=== PATIENT | female | born 1995 | race Hispanic/Latino ===

== ENCOUNTER 2025-03-04 18:38 | Emergency (ER) | payer SELFPAY ==
[~2025-03-04] VITALS: Ht 147.3 cm; Wt 57.6 kg
--- NOTE | 2025-03-04 19:25 | NUR ---
PT PLACED INTO FAST TRACK AT THIS TIME
--- NOTE | 2025-03-04 19:33 | NUR ---
BLADDER SCAN PERFORMED: 110ML
[2025-03-04 19:57] LABS: APPEARANCE,URINE CLEAR (CLEAR); GLUCOSE, URINE (UA) NEGATIVE (NEGATIVE); LEUKOCYTE ESTERASE ,URINE NEGATIVE Leu/uL (NEGATIVE); NITRATE,URINE NEGATIVE (NEGATIVE); OCCULT BLOOD,URINE NEGATIVE (NEGATIVE); SQUAMOUS EPITHELIAL CELL,UR RARE /HPF (0-2)
[2025-03-04 19:58] LABS: HCG,QUALITATIVE URINE NEGATIVE (NEGATIVE)
[2025-03-04 20:23] LABS: IMMATURE GRANULOCYTE ABSOLUTE 0.03 K/uL (0-1); NUCLEATED RED BLOOD CELLS 0.0 % (0.0-0.19); PLATELET COUNT (AUTO) 276 K/uL (130-400); RED BLOOD CELL COUNT(AUTO) 3.93 MIL/uL (4.00-5.50); RED CELL DISTRIBUTION WIDTH 20.0 % (11.0-15.5); WHITE BLOOD COUNT (AUTO) 9.5 K/uL (4.8-10.8)
[2025-03-04 20:30] LABS: CREATININE 0.6 mg/dL (0.5-1.0); GLOMERULAR FILTR. RATE CALC 125.0 mL/min (>90); GLUCOSE,RANDOM 104.0 mg/dL (70-105); SODIUM SERUM 142.0 mmol/L (136-145); UREA NITROGEN, BLOOD 15.0 mg/dL (7-18)
--- NOTE | 2025-03-04 23:46 | HMCIMG ---
EXAM: CT Abdomen and Pelvis Without IV contrast CLINICAL HISTORY: Patient presents with urinary retention. TECHNIQUE: Axial computed tomography images of the abdomen and pelvis without intravenous contrast. CONTRAST: No IV contrast. COMPARISON: None provided. FINDINGS: LUNG BASES: The lung bases appear clear. No pleural effusions are seen. LIVER: The liver is enlarged, measuring 17.5 cm in craniocaudal span. GALLBLADDER AND BILE DUCTS: Mildly thickened gallbladder wall. No radioopaque gallstones are seen. No biliary ductal dilatation is evident. PANCREAS: Unremarkable. SPLEEN: Unremarkable. ADRENAL GLANDS: Unremarkable. KIDNEYS, URETERS, AND BLADDER: The kidneys appear within normal limits. No renal or ureteric calculus. No hydronephrosis or hydroureter. The urinary bladder is incompletely distended at the time of examination, limiting evaluation for possible wall thickening. In the appropriate clinical setting, mild cystitis cannot be excluded. STOMACH AND BOWEL: Unremarkable appearance of the stomach and bowel. No evidence of bowel obstruction. No evidence suggesting enteritis or colitis. APPENDIX: No evidence of acute appendicitis on CT examination. PERITONEUM: Minimal free fluid in the cul-de-sac. No free air. LYMPH NODES: No lymphadenopathy is evident. REPRODUCTIVE: The uterus and both ovaries are unremarkable. VASCULATURE: No evidence of abdominal aortic aneurysm. BONES: No aggressive appearing osseous lesion. No acute osseous pathology evident. IMPRESSION: No renal, ureteral, or bladder calculus or hydronephrosis bilaterally. No CT evidence of urinary retention. Mildly thickened gallbladder wall, recommend ultrasound of the gallbladder for further evaluation. Mild hepatomegaly without focal hepatic lesion. Minimal free fluid in the cul-de-sac. /[place]
[2025-03-05] MEDS ORDERED: MACR100 PO (00:16)
--- NOTE | 2025-03-05 00:17 | ERN ---
General Chief Complaint: Pelvic Pain Stated Complaint: PELVIC PAIN Time Seen by MD: 19:58 Time Seen by Midlevel: 19:58 Source: patient History of Present Illness Allergies: Coded Allergies: No Known Drug Allergies (Unverified Allergy, Unknown, 03/04/25) Past Medical History Past Medical History: No Pertinent History Past Surgical History: Female( History) LMP: Feb 16, 2025 Results Laboratory and Microbiology Lab and Micro Result Laboratory Tests Test 03/04/25 19:38 03/04/25 20:16 Urine Color DARK-ORANGE (YELLOW) Urine Appearance CLEAR (CLEAR) Urine pH 6.5 (5.0-8.0) Urine Specific [place] 1.004 (1.001-1.031) Urine Protein NEGATIVE mg/dL (NEGATIVE) Urine Glucose (UA) NEGATIVE mg/dL (NEGATIVE) Urine Ketones NEGATIVE mg/dL (NEGATIVE) Urine Occult Blood NEGATIVE (NEGATIVE) Urine Nitrate NEGATIVE (NEGATIVE) Urine Bilirubin NEGATIVE mg/dL (NEGATIVE) Urine Urobilinogen 0.2 mg/dL (0.2-1.0) Urine Leukocyte Esterase NEGATIVE [place]/uL Urine RBC None /HPF (0-1) Urine WBC None /HPF (0-1) Urine Squamous Epithelial Cells RARE /HPF (0-2) Urine Bacteria None /HPF (None Seen) Urine HCG, Qualitative NEGATIVE (NEGATIVE) White Blood Count 9.5 K/uL (4.8-10.8) Red Blood Count 3.93 MIL/uL (4.00-5.50) L Hemoglobin 8.9 g/dL (12.0-16.0) L Hematocrit 31.2 % (36-48) L Mean Corpuscular Volume 79.4 fL (79-99) Mean Corpuscular Hemoglobin 22.6 pg (27.0-33.0) L Mean Corpuscular Hemoglobin Concent 28.5 g/dL (32.0-36.0) L Red Cell Distribution Width 20.0 % (11.0-15.5) H Platelet Count 276 K/uL (130-400) Mean Platelet Volume 11.0 fL (7.5-10.5) H Immature Granulocyte % (Auto) 0.3 % (0-1) Neutrophils (%) (Auto) 69.4 % (40.0-77.0) Lymphocytes (%) (Auto) 22.3 % (21.0-51.0) Monocytes (%) (Auto) 6.0 % (3.0-13.0) Eosinophils (%) (Auto) 1.6 % (0.0-8.0) Basophils (%) (Auto) 0.4 % (0.0-5.0) Neutrophils # (Auto) 6.6 K/uL (1.8-7.7) Lymphocytes # (Auto) 2.1 K/uL (1.0-4.8) Monocytes # (Auto) 0.6 K/uL (0.1-1.0) Eosinophils # (Auto) 0.15 K/uL (0.00-0.70) Basophils # (Auto) 0.04 K/uL (0.00-0.20) Absolute Immature Granulocyte (auto 0.03 K/uL (0-1) Nucleated Red Blood Cells 0.0 % (0.0-0.19) Red Blood Cell Morphology See comments Sodium Level 142 mmol/L (136-145) Potassium Level 3.8 mmol/L (3.5-5.1) Chloride Level 105 mmol/L (101-111) Carbon Dioxide Level 27 mmol/L (21-32) Blood Urea Nitrogen 15 mg/dL (7-18) Creatinine 0.6 mg/dL (0.5-1.0) Glomerular Filtration Rate Calc 125 mL/min (>90) Random Glucose 104 mg/dL (70-105) Total Calcium 9.1 mg/dL (8.5-10.1) ED Course Orders Procedure Category Date Status Time Urinalysis LAB 03/04/25 Complete W/Microscopic 18:53 ,Urine Test LAB 03/04/25 Complete 18:53 Bladder Scan CPOE 03/04/25 Transmitted 19:00 Cbc With Differential LAB 03/04/25 Complete 20:07 Basic Metabolic Panel LAB 03/04/25 Complete 20:07 Ct Abdomen/Pelvis W/O CT 03/04/25 Resulted Contrast 21:29 Vital Signs Date Time Temp Pulse Resp B/P (MAP) Pulse Ox O2 Delivery O2 Flow Rate FiO2 03/04/25 22:45 98.1 86 16 113/65 96 Room Air* 0 21 03/04/25 21:45 98.4 84 19 115/65 95 Room Air* 0 21 03/04/25 20:45 98.2 82 18 119/69 94 Room Air* 0 03/04/25 19:45 98.2 85 17 121/71 94 Room Air* 0 03/04/25 18:43 98.2 88 18 114/67 93 Room Air* 0 03/04/25 18:41 98.2 88 18 114/67 93 Room Air DX & DISP Disposition: Discharge Departure Impression: Primary Impression: Dysuria Additional Impression: Urinary retention Condition: Stable Scripts Nitrofurantoin/Nitrofuran Mac (Macrobid) 100 Mg Cap 1 CAP PO BID for 5 Days, #10 CAP 0 Refills Prov: SUDHA HILL 03/05/25 Additional Instructions: Work today is unremarkable. Your urinalysis does not show any evidence of infection however you were having urinary symptoms so we will treat empirically with an oral antibiotic. Your CT scan is normal and does not show any signs of a prolapsed uterus/prolapse bladder. You need to follow up with your OBGYN for further evaluation. Referrals: SELF,REFERRAL (PCP) I have reviewed the case, and I agree with, Diagnosis and Plan I performed the substantive portion of the visit. I have reviewed and personally made and approve the management plan that is documented in the note by myself or the TIERRA. I acknowledge for responsibility for the patient's management plan. SUDHA HILL Mar 05, 2025 00:17
[2025-03-05 00:26] VITALS: BP 121/72; PULSE 87; RESP 18; TEMP 98.2; O2SAT 98
== END 2025-03-05 00:30 | disposition home or self-care (01) ==
LOC: EDH 18:38
DX: R30.0 Dysuria (principal); R33.9 Retention of urine, unspecified; Z79.899 Other long term (current) drug therapy
CPT/HCPCS: 36415; 74176; 80048; 81001; 81025; 85025; 99285